=== PATIENT | female | born 1975 | race Caucasian/White ===

== ENCOUNTER → 2021-05-04 10:41 | Outpatient (CLI) | payer OTHER, SELFPAY ==
[2021-05-04 12:46] LABS: COVID19 -Nasal RAPID Negative (Negative)
== END ==
PROVIDERS: PCP Physician Assistant; Referring Provider Obstetrics & Gynecology; Visit Provider Obstetrics & Gynecology
DX: Z20.822 Contact with and (suspected) exposure to COVID-19 (principal); Z01.812 Encounter for preprocedural laboratory examination
CPT/HCPCS: 87635

== ENCOUNTER 2021-05-05 06:30 | Day surgery (SDC) | payer OTHER, SELFPAY ==
[2021-04-30 14:49] VITALS: BMI 20.7
[2021-05-05] VITALS (7 sets, daily range): BP systolic 104–126; BP diastolic 63–75; PULSE 62–79; RESP 14–19; TEMP 36.6–36.9; O2SAT 96–99; BMI 20.7
--- NOTE | 2021-05-05 | PATH_ITS ---
[facility] Accession Number: [id number] . 01 Material submitted: . uterus - UTERUS AND BILATERAL FALLOPIAN TUBES . 02 Diagnosis: Uterus and Bilateral Fallopian Tubes, Supracervical Hysterectomy and Bilateral Salpingectomy (Weight 42 grams): Proliferative endometrium; negative for glandular hyperplasia, cytologic atypia or malignancy. Myometrium with no significant histomorphologic abnormality. Uterine serosa with no significant histomorphologic abnormality. Right and left fallopian tubes with multiple benign paratubal cysts (1-2 mm); negative for atypia or malignancy. [facility] 05/07/2021 1326 Local . 02 Electronically signed: . Marina Mac MD, Pathologist NPI- [id number] . 01 Gross description: . The specimen is received in formalin, labeled uterus and bilateral fallopian tubes and consists of a 42-gram, supracervically resected and previously incised uterus measuring 4.5 cm from superior fundus to lower uterine segment by 5.0 cm from cornu to cornu by 3.0 cm from anterior to posterior. The serosa is kilgore-pink and smooth. The specimen is bivalved to reveal a 2.6 x 1.0 cm endometrial cavity with a kilgore-pink glistening endometrium measuring 0.1 cm in thickness. The myometrium is kilgore-pink and trabeculated, measuring 1.5 cm in thickness. The attached fallopian tubes measure 5.0 cm in length by 0.9 cm in diameter and 6.2 cm in length by 0.9 cm in diameter. The serosa is kilgore-pink, focally ragged and smooth with multiple paratubal cysts ranging from 0.1-0.2 cm. Sectioning reveals a kilgore mucosa and a stellate lumen measuring 0.3 cm in diameter. Overhead Cleaner Maintainer sections are submitted. . A1: Lower uterine segment, perpendicular sections. A2-A3: Overhead Cleaner Maintainer uterus. A4-A5: Fallopian tubes, surgical device sales representative cross sections and bisected fimbria. ([id number]) /MRV 05/06/2021 1140 Local . 02 Pathologist provided ICD-10: N92.1, N93.9, N83.209 . 02 CPT . 332262 Performed at: 01 [facility] [address] [address], [place], [place] [id number] MD Moe Joseph MD Phone: [phone] Performed at: [address] [id number] MD Sugey Fish MD Phone: [phone]
[2021-05-05] MEDS: ACETAMINOPHEN 325 MG TABLET 975 MG PO (07:24)
[2021-05-05] MEDS: LACTATED RINGERS 1,000 ML 42 ML IV ×2 (07:24→08:23)
--- NOTE | 2021-05-05 07:43 | PM.PREOP ---
Pre-operative Note COVID-19 COVID-19 status: Negative Result date/Date tested (Pos, Neg/Pending): 05/04/21 Interval Note History & Physical reviewed/Exam performed by Physician: Yes Changes to H&P: No H&P completed within 30 days and has changed as indicated here:: 05/04/21
[2021-05-05] MEDS: CEFAZOLIN 1 GM VIAL 2 GM IV (08:02)
--- NOTE | 2021-05-05 08:09 | SUR.OPER ---
Lithotomy on padded OR bed. [place] Pad Positioner under torso. Head on pillow, arms padded and tucked at sides. Legs secured in padded yellow fins stirrups.
[2021-05-05] MEDS: BUPIVACAINE 0.5% (PF) VIAL 30 ML INJ (08:25)
[2021-05-05] MEDS: EPINEPHrine 1 MG/ML 0.15 MG INJ (08:25)
[2021-05-05] MEDS: ROPIVACAINE 0.2% PF 2 MG/ML 10ML AMP 10 ML INJ (08:32)
[2021-05-05] MEDS: SCOPOLAMINE 1 PATCH TOP (08:33)
--- NOTE | 2021-05-05 09:18 | PM.GYNOP.1 ---
Operative Date/Time/Diagnoses Date of procedure: 05/05/21 Time of procedure: 09:19 Pre-op diagnosis: Menometrorrhagia Post-op diagnosis: same Procedure & Clinicians Procedure: Procedures Operation Date: 05/05/21 07:45 Actual Procedure Side Surgeon p Laparoscopic Supracervical Hysterectomy w. bilateral salpingectomy Shivani Mcfarland MD Indications: Menometrorrhagia Surgeon: Shivani Mcfarland Pipelaying Fitter: Daryn Hoang Anesthesia Type: General and Local Operative Notes Findings: Six week size anteverted uterus Normal ovaries and tubes Normal liver and gallbladder Normal appendix Bladder to anterior abdominal wall adhesion Round ligament in an odd position on the left side Closure Type: primary Specimen(s): left tube, right tube and uterus Applied: catheter (Removed at the end of the case) Estimated blood loss (mL): 5 Blood products transfused: none Procedure in detail: The patient was taken to the operating room where she was placed in the dorsal supine position. After adequate general endotracheal anesthesia was achieved, she was placed in the dorsal lithotomy position, and prepped and draped in the usual sterile fashion. A timeout was performed. A bivalve speculum was placed into the vagina and the anterior lip of the cervix grasped with a single-tooth tenaculum. The cervical os was sequentially dilated until the ZUMI uterine manipulator could pass easily into the endometrial cavity. The single-tooth tenaculum was removed from the anterior lip of the cervix, and the bivalve speculum was removed from the vagina. Attention was then turned to the abdomen where 6 mL of half percent Marcaine with epinephrine were injected in the umbilical fold. A 5 mm incision was made. The Verhees needle was placed into the peritoneal cavity, and its placement confirmed by aspiration and drop test. The abdominal cavity was insufflated with 3.1 L of CO2. The Verhees needle was removed. A 5 mm trocar was placed without difficulty. 2 other incisions were made 4 cm lateral to the umbilicus after 5 mL of half percent Marcaine with epinephrine were injected. These were 5 mm incisions. Two 5 mm trochars were placed under direct visualization. The right tube was grasped with an atraumatic grasper. Using the plasma kinetic with settings of 40 W the mesosalpinx was cauterized and cut all the way down to the cornua of the uterus. The cornua of the uterus was then grasped with an atraumatic grasper. The utero-ovarian ligaments were cauterized and cut. The round ligament and broad ligament was cauterized and cut with plasma kinetic. Hemostasis was achieved. The bladder flap was created using the plasma kinetic with cautery and cut [facility] across. The uterine arteries on the right side were extensively cauterized with plasma kinetic. All of this was repeated on the left side. The adhesion between the bladder and anterior abdominal wall was taken down with the PlasmaKinetic. The round ligament which was rotated medially was also taken down. of the bladder flap was created using the plasma kinetic, and the bladder taken down off the lower uterine segment and cervix. Using the Endoloop, the cervix was amputated from the uterus 2 cm above the uterosacral ligaments, after the ZUMI uterine manipulator was removed from the uterus. There was a small amount of bleeding noted from the posterior edge of the cervix, and this was cauterized for hemostasis. A sponge stick was placed into the vagina. 6 mL of half percent Marcaine with epinephrine were injected in the midline through the previous Pfannenstiel incision. 12 mm trocar was placed. An Endobag was placed through the suprapubic trocar and the uterus placed into the Endobag. The trocar was removed, and the edges of the endobag were brought up through the skin. The Didier placed into the endobag. The uterus was hand morcellated in approximately 2 pieces. The Endobag and Didier were removed from the peritoneal cavity. The suprapubic fascia was closed with 0 Vicryl in a running fashion. The abdomen was re-insufflated with 3.0 L of CO2. The pelvis was copiously irrigated with warm normal saline. No bleeding was noted. 20 cc of 0.2% ropivacaine were placed over the pedicles. The instruments wereremoved from the abdomen. The CO2 was allowed to escape. The suprapubic incision was closed on the subcutaneous layer with 2 simple interrupted sutures of 3-0 Vicryl. All of the incisions were closed with 4-0 Biosyn in a subcuticular fashion. Steri-Strips and Allevyn dressings were placed over the incisions. The moistened sponge stick was removed from the vagina. Sponge, lap, and instrument counts were correct x-2. The patient tolerated the procedure well, was taken to PACU in stable condition. Complications: none Post-operative Condition: stable Disposition: PACU Plan for aftercare: Home after recovery
== END 2021-05-05 10:30 | disposition home or self-care (01) ==
PROVIDERS: PCP Physician Assistant; Referring Provider Obstetrics & Gynecology; Visit Provider Obstetrics & Gynecology
PROC: 0UT94ZL Resection of Uterus, Supracervical, Percutaneous Endoscopic Approach (ICD-10-PCS; CPT 58542; principal; 2021-05-05 07:45)
DX: N83.8 Other noninflammatory disorders of ovary, fallopian tube and broad ligament (principal); K66.0 Peritoneal adhesions (postprocedural) (postinfection)
CPT/HCPCS: 58542; J0171; J0330; J0690; J1100; J1885; J2250; J2405; J2704; J2795; J3010